=== PATIENT | female | born 1975 | race Caucasian/White ===

== ENCOUNTER 2016-12-14 12:55 | Inpatient (IN) | payer OTHER ==
[~2016-12-14] VITALS: Ht 162.5 cm; Wt 57.8 kg
--- NOTE | ~2016-12-14 | EKG ---
[place], [place] ELECTROCARDIOGRAM REPORT NAME: GUERRERO COLÓN UNIT #: [id number] ROOM: [id number] DOCTOR: PAT BHANDARI MD BIRTHDATE: [birth year] DOS: 12/14/2016 TIME: 23:54 p.m. Sinus bradycardia at rate 58. Early repolarization. Normal EKG. PAT BHANDARI MD CM:EKGRPT:ELECTROCARDIOGRAM REPORT 1914 02 PAT BHANDARI MD
[2016-12-14 11:30] VITALS: BP 131/78
[2016-12-14 13:49] LABS: BASO % 0.3 % (0.0-1.0); EOS % 0.5 % (1.0-4.0); HEMATOCRIT 46.5 % (37.0-47.0); HEMOGLOBIN 15.6 g/dl (12.0-16.0); LYMPH # 2.2 10*3/uL (1.3-4.4); MEAN CELL VOLUME 87.4 fl (81.0-99.0); MEAN CORPUSCULAR HGB 29.3 pg (27.0-31.0); MEAN CORPUSCULAR HGB CONC 33.5 g/dl (33.0-37.0); MEAN PLATELET VOLUME 9.9 fl (9.6-12.3); MONO # 0.3 10*3/uL (0.1-1.0); MONO % 4.8 % (3.0-9.0); NEUT # 3.5 10*3/uL (2.3-7.9); NEUT % 58.1 % (47.0-73.0); PLATELET COUNT AUTOMATED 248 10*3/uL (130-400); RED BLOOD COUNT 5.32 10*6/uL (4.10-5.10); RED CELL DISTRI WIDTH 13.7 % (0-14.5)
[2016-12-14 13:57] LABS: PROTHROMBIN TIME 10.7 SECONDS (9.0-12.4)
[2016-12-14 14:04] LABS: BILIRUBIN NEGATIVE (NEGATIVE); BLOOD NEGATIVE (NEGATIVE); CLARITY SL CLOUDY (CLEAR); COLOR YELLOW (YELLOW); GLUCOSE NEGATIVE (NEGATIVE); KETONE NEGATIVE (NEGATIVE); LEUKO ESTERASE NEGATIVE (NEGATIVE); NITRITE NEGATIVE (NEGATIVE); PROTEIN TRACE (NEGATIVE); UROBILINOGEN 0.2 E.U./dl (0.2-1.0)
[2016-12-14 14:06] LABS: ALBUMIN 3.8 gm/dl (3.1-4.5); ALKALINE PHOSPHATASE 77 U/L (45-117); BILIRUBIN, TOTAL 0.3 mg/dl (0.2-1.0); BUN 13 mg/dl (7-24); CARBON DIOXIDE 24 mmol/L (21-32); CHLORIDE 108 mmol/L (98-107); EST GLOM FILT AFRICAN AMERICAN > 60 ml/min; GLUCOSE 119 mg/dL (65-99); POTASSIUM 4.3 mmol/L (3.5-5.1); SGOT/AST 18 IU/L (3-35); SGPT/ALT 17 U/L (12-78); SODIUM 141 mmol/L (136-145); TOTAL PROTEIN 8.5 gm/dL (6.4-8.2)
[2016-12-14 14:13] LABS: URINE AMPHETAMINES < 1000 (1000ng/ml); URINE BARBITURATES < 200 (200ng/ml); URINE COCAINE > 300 (300ng/ml)
[2016-12-14 14:31] LABS: BACTERIA TRACE; EPITHELIAL CELLS 40-45; MUCOUS TRACE
[2016-12-14 14:32] LABS: URINE REFLEX COMMENT NO (NO)
[2016-12-14 15:35] VITALS: BP 131/78
[2016-12-14 16:29] VITALS: BP 124/62
[2016-12-14 20:00] VITALS: BP 117/64
[2016-12-15] VITALS: BP 113/67
[2016-12-15 04:00] VITALS: BP 103/45
[2016-12-15 08:00] VITALS: BP 101/78
[2016-12-15 12:00] VITALS: BP 110/76
[2016-12-15 16:00] VITALS: BP 102/62
[2016-12-15 20:00] VITALS: BP 104/76
[2016-12-16] VITALS: BP 96/68
[2016-12-16 08:00] VITALS: BP 120/66
[2016-12-16 12:00] VITALS: BP 122/68
[2016-12-16 16:00] VITALS: BP 110/62
[2016-12-16 20:00] VITALS: BP 109/64
[2016-12-17] VITALS: BP 109/85
[2016-12-17 06:07] LABS: BASO % 0.7 % (0.0-1.0); EOS # 0.1 10*3/uL (0.0-0.4); EOS % 1.9 % (1.0-4.0); HEMATOCRIT 43.9 % (37.0-47.0); HEMOGLOBIN 14.2 g/dl (12.0-16.0); LYMPH % 56.4 % (27.0-41.0); MEAN CORPUSCULAR HGB 29.1 pg (27.0-31.0); MEAN CORPUSCULAR HGB CONC 32.3 g/dl (33.0-37.0); MEAN PLATELET VOLUME 9.7 fl (9.6-12.3); MONO # 0.3 10*3/uL (0.1-1.0); MONO % 5.6 % (3.0-9.0); NEUT # 1.9 10*3/uL (2.3-7.9); NEUT % 35.2 % (47.0-73.0); PLATELET COUNT AUTOMATED 201 10*3/uL (130-400); RED BLOOD COUNT 4.88 10*6/uL (4.10-5.10); RED CELL DISTRI WIDTH 13.6 % (0-14.5); WHITE BLOOD COUNT 5.3 10*3/uL (4.8-10.8)
[2016-12-17 06:25] LABS: EST GLOM FILT AFRICAN AMERICAN > 60 ml/min
[2016-12-17 08:00] VITALS: BP 112/62
[2016-12-17] MEDS ORDERED: METHOCARBAMOL750 M1 PO (10:30)
[2016-12-17] MEDS ORDERED: ATARAX,VISTARIL50 MG PO (10:30)
[2016-12-17] MEDS ORDERED: BACTROBAN CREAM15 GM T (10:34)
== END 2016-12-17 12:05 | disposition home or self-care (01) | DRG 897 ==
LOC: EDHOLD 12:55 → 4E 12:55
PROVIDERS: Internal Medicine
DX: F11.23 Opioid dependence with withdrawal (principal); E87.8 Other disorders of electrolyte and fluid balance, not elsewhere classified; G25.81 Restless legs syndrome; R73.9 Hyperglycemia, unspecified; R19.7 Diarrhea, unspecified; F17.210 Nicotine dependence, cigarettes, uncomplicated; F19.10 Other psychoactive substance abuse, uncomplicated; Z71.6 Tobacco abuse counseling; Z90.49 Acquired absence of other specified parts of digestive tract; Z84.89 Family history of other specified conditions; F14.10 Cocaine abuse, uncomplicated